=== PATIENT | female | born 1970 | race Caucasian/White ===

== ENCOUNTER 2021-10-16 19:04 | Emergency (ER) | payer BC, OTHER ==
[2021-10-16] MEDS ORDERED: Adenosine 6 MG/2 ML SDV IVPUSH ONE (19:36)
[2021-10-16] MEDS ORDERED: Adenosine 12 MG/4 ML SDV ONE (19:38)
[2021-10-16] MEDS ORDERED: Adenosine 6 MG/2 ML SDV ONE (19:40)
== END 2021-10-16 21:15 | disposition home or self-care (01) ==
LOC: JD.ED 19:04
DX: I47.1 Supraventricular tachycardia (principal); E78.00 Pure hypercholesterolemia, unspecified; I10 Essential (primary) hypertension; E66.9 Obesity, unspecified; Z68.33 Body mass index [BMI] 33.0-33.9, adult; Z79.899 Other long term (current) drug therapy; Z88.1 Allergy status to other antibiotic agents; Z88.8 Allergy status to other drugs, medicaments and biological substances
CPT/HCPCS: 36415; 80053; 83735; 83880; 84443; 84484; 85007; 85027; 85379; 93005; 96374; 99285; J0153; 93010

== ENCOUNTER 2023-03-10 02:51 | Emergency (ER) | payer BC ==
[2023-03-10] MEDS ORDERED: Aluminum Hydroxide/Magnesium Hydroxide/Simethicone Susp 30 ML Cup PO ONE (03:14)
[2023-03-10] MEDS ORDERED: Famotidine 20 MG Tab PO STA (03:14)
[2023-03-10] MEDS ORDERED: Ondansetron 4 MG/2 ML SDV IVPUSH ONE (03:22)
[2023-03-10] MEDS ORDERED: HYDROmorphone 1 MG/ML Syringe IVPUSH ONE (03:22)
[2023-03-10] MEDS ORDERED: Sodium Chloride 0.9% 1,000 ML IV SCH (03:30)
[2023-03-10 03:34] LABS: HEMATOCRIT 43.4 % (34.1-44.9); HEMOGLOBIN 14.8 gm/dl (11.2-15.7); MEAN CORPUSCULAR HEMOGLOBIN 29.2 pg (25.6-32.2); MEAN CORPUSCULAR HGB CONC 34.1 g/dl (32.2-35.5); MEAN CORPUSCULAR VOLUME 85.6 fl (79.4-94.8); MEAN PLATELET VOLUME 10.5 fl (9.4-12.3); PLATELET COUNT,PLT 298 K/mm3 (182-369); RED BLOOD CELL COUNT 5.07 M/mm3 (3.98-5.22); WHITE BLOOD CELL COUNT,WBC 12.85 K/mm3 (3.98-10.04)
[2023-03-10 03:39] LABS: A/G RATIO 1.1 (1-2); ALBUMIN 3.8 g/dl (3.4-5.0); BILIRUBIN TOTAL 0.4 mg/dL (0.2-1.0); BUN/CREATININE RATIO 18.8 (14-18); CALCIUM 9.2 mg/dL (8.5-10.1); CREATININE 0.8 mg/dL (0.55-1.02); EST CRCL DRUG DOSING (CG) 62.07 mL/min; PROTEIN TOTAL,TP 7.4 g/dl (6.4-8.2)
[2023-03-10] MEDS ORDERED: Iopamidol 612 MG/ML 100 ML Bottle IVPUSH ONE (03:50)
[2023-03-10 04:12] LABS: BAND PERCENT MAN 0 % (0-10); BASOPHILS PERCENT MAN 1 (0.1-1.2); EOSINOPHILS PERCENT MAN 1 % (0.7-5.8); LYMPHOCYTES % ATYPICAL MANUAL 0 %; LYMPHOCYTES PERCENT MAN 27 % (20-40); MONOCYTES PERCENT MAN 4 % (2-10)
[2023-03-10 04:14] LABS: PLATELET COUNT ESTIMATE ADEQUATE
== END 2023-03-10 05:50 | disposition home or self-care (01) ==
LOC: JD.ED 02:51
DX: K81.0 Acute cholecystitis (principal); I48.91 Unspecified atrial fibrillation; Z86.16 Personal history of COVID-19; Z88.1 Allergy status to other antibiotic agents; Z79.899 Other long term (current) drug therapy
CPT/HCPCS: 36415; 74177; 76705; 80053; 83690; 85007; 85027; 96374; 96375; 99284; J1170; J2405; J7030; Q9967

== ENCOUNTER 2023-03-31 21:59 | Day surgery (SDC) | payer BC ==
[2023-03-31] MEDS ORDERED: Ondansetron 4 MG/2 ML SDV IVPUSH ONE (22:54)
[2023-03-31] MEDS ORDERED: HYDROmorphone 0.5 MG/0.5 ML Syringe IVPUSH ONE (22:54)
[2023-03-31] MEDS ORDERED: Sodium Chloride 0.9% 1,000 ML IV ONE (22:54)
[2023-03-31 23:11] LABS: BASOPHILS ABSOLUTE AUTO 0.1 K/mm3 (0.0-0.2); BASOPHILS PERCENT AUTO 0.4 % (0.0-1.0); EOSINOPHILS ABSOLUTE AUTO 0.1 K/mm3 (0.0-0.4); EOSINOPHILS PERCENT AUTO 0.7 % (0.0-6.0); HEMATOCRIT 43.6 % (37.0-47.0); HEMOGLOBIN 14.8 gm/dl (12.0-16.0); IMMATURE GRAN ABSOLUTE AUTO 0.05 K/mm3 (0.00-0.05); IMMATURE GRAN PERCENT AUTO 0.4 % (0.0-0.4); LYMPHOCYTES ABSOLUTE AUTO 2.9 K/mm3 (1.0-4.8); LYMPHOCYTES PERCENT AUTO 20.5 % (24.0-44.0); MEAN CORPUSCULAR HEMOGLOBIN 29.1 pg (28.0-32.0); MEAN CORPUSCULAR HGB CONC 33.9 g/dl (32.0-36.0); MEAN CORPUSCULAR VOLUME 85.7 fl (83.0-99.0); MEAN PLATELET VOLUME 10.3 fl (9.4-12.3); MONOCYTES ABSOLUTE AUTO 0.9 K/mm3 (0.0-0.8); MONOCYTES PERCENT AUTO 6.4 % (0.0-8.0); NEUTROPHILS PERCENT AUTO 71.6 % (41.0-71.0); PLATELET COUNT,PLT 289 K/mm3 (150-400); RED BLOOD CELL COUNT 5.09 M/mm3 (4.10-5.30)
[2023-03-31 23:39] LABS: A/G RATIO 1.1 (1-2); ALANINE AMINOTRANSFERASE,ALT 98 U/L (14-59); ALKALINE PHOSPHATASE 167 U/L (46-116); ASPARTATE AMNIOTRANSFERASE,AST 136 U/L (15-37); BILIRUBIN TOTAL 0.4 mg/dL (0.2-1.0); BLOOD UREA NITROGEN,BUN 17 mg/dL (7-18); BUN/CREATININE RATIO 18.9 (14-18); C-REACTIVE PROTEIN <0.2 mg/dL (<1.0); CALCIUM 9.6 mg/dL (8.5-10.1); CARBON DIOXIDE,CO2 24 mEq/L (21-32); CHLORIDE,CL 104 mEq/L (98-107); CREATININE 0.9 mg/dL (0.55-1.02); EST CRCL DRUG DOSING (CG) 55.18 mL/min; ESTIMATED GFR 77 mL/min (>60); GLUCOSE RANDOM 110 mg/dL (70-99); LIPASE 188 U/L (73-393); PROTEIN TOTAL,TP 7.7 g/dl (6.4-8.2); SODIUM,NA 139 mEq/L (136-145)
[2023-04-01] MEDS ORDERED: Piperacillin/Tazobactam 4.5 GM in Sodium Chloride 0.9% 100 ML IV ONE (01:42)
[2023-04-01] MEDS ORDERED: HYDROmorphone 0.5 MG/0.5 ML Syringe IVPUSH PRN ×2 (08:28→13:36)
[2023-04-01] MEDS ORDERED: Lactated Ringers 1,000 ML IV SCH (08:30)
[2023-04-01] MEDS ORDERED: Bupivacaine 0.5%/EPINEPHrine 1:200,000 50 ML MDV ONE (11:29)
[2023-04-01] MEDS ORDERED: Lidocaine 1% 30 ML SDV ONE (11:29)
[2023-04-01] MEDS ORDERED: Ondansetron 4 MG/2 ML SDV ONE (12:01)
[2023-04-01] MEDS ORDERED: Lidocaine 1% 6 ML ONE (12:01)
[2023-04-01] MEDS ORDERED: Midazolam 1 MG/ML 2 ML SDV ONE (12:02)
[2023-04-01] MEDS ORDERED: Propofol 200 MG/20 ML SDV ONE (12:02)
[2023-04-01] MEDS ORDERED: fentaNYL 250 MCG/5 ML SDV ONE (12:02)
[2023-04-01] MEDS ORDERED: Rocuronium 50 MG/5 ML Vial ONE (12:02)
[2023-04-01] MEDS ORDERED: Succinylcholine 200 MG/10 ML MDV ONE (12:02)
[2023-04-01] MEDS ORDERED: Neostigmine Methylsulfate 10 MG/10 ML MDV ONE (12:09)
[2023-04-01] MEDS ORDERED: ceFAZolin 2 GM Vial ONE (12:40)
[2023-04-01] MEDS ORDERED: metroNIDAZOLE/Normal Saline 100 ML ONE (12:43)
[2023-04-01] MEDS ORDERED: Lactated Ringers 1,000 ML ONE (12:56)
[2023-04-01] MEDS ORDERED: Dexamethasone 4 MG/ML 5 ML MDV ONE (13:11)
[2023-04-01] MEDS ORDERED: Ketorolac 30 MG/ML SDV ONE (13:11)
[2023-04-01] MEDS ORDERED: fentaNYL 100 MCG/2 ML SDV IVPUSH PRN (13:36)
[2023-04-01] MEDS ORDERED: oxyCODONE 5 MG Tab PO PRN (14:23)
== END 2023-04-01 17:27 | disposition home or self-care (01) ==
LOC: JD.ED 21:59 → JD.SDS 04-01 09:19
PROVIDERS: ATTEND Surgery
DX: K80.12 Calculus of gallbladder with acute and chronic cholecystitis without obstruction (principal); I48.91 Unspecified atrial fibrillation; E78.00 Pure hypercholesterolemia, unspecified; I10 Essential (primary) hypertension; F41.9 Anxiety disorder, unspecified; E66.9 Obesity, unspecified; F32.A Depression, unspecified; Z88.1 Allergy status to other antibiotic agents; Z79.899 Other long term (current) drug therapy
CPT/HCPCS: 36415; 47562; 76705; 80053; 83690; 85025; 86140; 96361; 96365; 96375; 99285; J0330; J0690; J1100; J1170; J1885; J2250; J2405; J2543; J2704; J2710; J3010; J3490; J7030; J7120; 00790; 99284

== ENCOUNTER 2023-04-14 15:47 | Observation (INO) | payer BC, OTHER ==
[2023-04-14] MEDS ORDERED: Sodium Chloride 0.9% 10 ML Syringe FLUSH PRN (17:01)
[2023-04-14] MEDS ORDERED: Iopamidol 612 MG/ML 100 ML Bottle IVPUSH ONE (17:01)
[2023-04-14] MEDS: Sodium Chloride 0.9% 1,000 ML IV SCH (17:05)
[2023-04-14] MEDS ORDERED: Levofloxacin/Dextrose 5%-Water 750 MG in Premix Bag 1 BAG IV SCH (18:15)
[2023-04-14] MEDS ORDERED: Ondansetron 4 MG Tab.DIS PO PRN (18:36)
[2023-04-14] MEDS ORDERED: oxyCODONE 5 MG Tab PO PRN (18:36)
[2023-04-14] MEDS ORDERED: Acetaminophen 325 MG Tab PO PRN (18:36)
[2023-04-14] MEDS ORDERED: Naloxone 0.4 MG/ML SDV IVPUSH PRN (18:36)
[2023-04-14] MEDS ORDERED: Ondansetron 4 MG/2 ML SDV IV PRN (18:36)
[2023-04-14] MEDS ORDERED: Morphine 2 MG/ML SYRINGE IVPUSH PRN (18:36)
[2023-04-14] MEDS: metroNIDAZOLE/Normal Saline 500 MG in Premix Bag 1 BAG IV SCH (19:30)
[2023-04-15] MEDS: Sodium Chloride 0.9% 1,000 ML IV SCH (00:07)
[2023-04-15] MEDS: metroNIDAZOLE/Normal Saline 500 MG in Premix Bag 1 BAG IV SCH ×2 (03:19→09:36)
[2023-04-15 05:21] LABS: ANION GAP 11.2 (5-15); BUN/CREATININE RATIO 14.3 (14-18); C-REACTIVE PROTEIN 8.7 mg/dL (<1.0); CALCIUM 8.7 mg/dL (8.5-10.1); CREATININE 0.7 mg/dL (0.55-1.02); EST CRCL DRUG DOSING (CG) 70.94 mL/min; MAGNESIUM 2.1 mg/dL (1.8-2.4); POTASSIUM,K 4.2 mEq/L (3.5-5.1)
[2023-04-15 05:27] LABS: BASOPHILS ABSOLUTE AUTO 0.1 K/mm3 (0.0-0.2); BASOPHILS PERCENT AUTO 0.6 % (0.0-1.0); EOSINOPHILS ABSOLUTE AUTO 0.2 K/mm3 (0.0-0.4); EOSINOPHILS PERCENT AUTO 2.3 % (0.0-6.0); HEMATOCRIT 34.2 % (37.0-47.0); HEMOGLOBIN 11.4 gm/dl (12.0-16.0); IMMATURE GRAN ABSOLUTE AUTO 0.08 K/mm3 (0.00-0.05); IMMATURE GRAN PERCENT AUTO 0.8 % (0.0-0.4); LYMPHOCYTES ABSOLUTE AUTO 1.9 K/mm3 (1.0-4.8); LYMPHOCYTES PERCENT AUTO 19.8 % (24.0-44.0); MEAN CORPUSCULAR HEMOGLOBIN 28.6 pg (28.0-32.0); MEAN CORPUSCULAR HGB CONC 33.3 g/dl (32.0-36.0); MEAN CORPUSCULAR VOLUME 85.9 fl (83.0-99.0); MEAN PLATELET VOLUME 9.6 fl (9.4-12.3); MONOCYTES ABSOLUTE AUTO 0.7 K/mm3 (0.0-0.8); MONOCYTES PERCENT AUTO 6.9 % (0.0-8.0); NEUTROPHILS ABSOLUTE AUTO 6.6 K/mm3 (1.8-7.7); NEUTROPHILS PERCENT AUTO 69.6 % (41.0-71.0); PLATELET COUNT,PLT 281 K/mm3 (150-400); RED BLOOD CELL COUNT 3.98 M/mm3 (4.10-5.30); WHITE BLOOD CELL COUNT,WBC 9.54 K/mm3 (3.9-11.3)
[2023-04-15] MEDS ORDERED: Venlafaxine 75 MG Cap.ER PO SCH (09:00)
[2023-04-15] MEDS ORDERED: Losartan 50 MG Tab PO SCH (09:00)
== END 2023-04-15 14:23 | disposition home or self-care (01) ==
LOC: JD.ED 15:47 → JD.MS 18:35
PROVIDERS: ADMIT Emergency Medicine; ATTEND Emergency Medicine
DX: K91.870 Postprocedural hematoma of a digestive system organ or structure following a digestive system procedure (principal); E78.00 Pure hypercholesterolemia, unspecified; I10 Essential (primary) hypertension; K21.9 Gastro-esophageal reflux disease without esophagitis; F41.9 Anxiety disorder, unspecified; F32.A Depression, unspecified; E66.9 Obesity, unspecified; Z90.49 Acquired absence of other specified parts of digestive tract; Z88.1 Allergy status to other antibiotic agents; Z79.899 Other long term (current) drug therapy; Z68.26 Body mass index [BMI] 26.0-26.9, adult
CPT/HCPCS: 36415; 74177; 80048; 82947; 83735; 85025; 86140; A9270; J1956; J3490; J7030; Q9967; 96365; 96366; 99284; 99285-25